=== PATIENT | female | born 1950 | race Caucasian/White ===

== ENCOUNTER 2018-03-04 11:14 | Outpatient (CLI) | payer MEDICARE, OTHER ==
--- NOTE | 2018-03-18 11:46 | Mammography Report ---
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 TECHNIQUE: Bilateral CC and MLO views were obtained. COMPARISON: None FINDINGS: The breasts demonstrate heterogeneously dense fibroglandular parenchyma bilaterally. Typically benign coarse and large rodlike calcifications are seen in both breasts. No suspicious masses, clustered microcalcifications, or regions of architectural distortion are identified. IMPRESSION: Benign findings RECOMMENDATION: Routine annual screening unless otherwise clinically indicated. BIRADS CATEGORY 2: Benign findings STANDARD QUALIFYING STATEMENTS: 1. This examination was not reviewed with the aid of Computer-Aided Detection (CAD). 2. A negative or benign imaging report should not delay biopsy if clinically suspicious findings are present. Consider surgical consultation if warrented. More than 5% of cancers are not identified by imaging. 3. Dense breasts may obscure an underlying neoplasm. 4. This examination was reviewed with the aid of 3D breast imaging (tomosynthesis).
== END 2018-03-04 11:15 | disposition home or self-care (01) ==
LOC: DI 11:14
DX: Z12.31 Encounter for screening mammogram for malignant neoplasm of breast (principal)
CPT/HCPCS: 77063; 77067

== ENCOUNTER 2020-01-02 16:20 | Emergency (ER) | payer MEDICARE, OTHER ==
[2020-01-02 16:28] VITALS: BP 152/74
[2020-01-02] MEDS ORDERED: AMOX/CLAV 875 MG/125 MG TABLET PO STA (17:25)
--- NOTE | 2020-01-02 17:27 | ED Physician Documentation ---
PD HPI WOUND RECHECK - Stated complaint Stated Complaint: DOG BITE - Chief complaint Chief Complaint: Wound - Histroy obtained from History obtained from: Patient (69-year-old woman who is up-to-date on tetanus was bitten on the right leg 2 days ago while running [place] a local park. Now has redness around the wound and a low-grade fever. No other symptoms of infection.) Review of Systems Constitutional: reports: Reviewed and negative Ears: reports: Reviewed and negative Nose: reports: Reviewed and negative PD PAST MEDICAL HISTORY - Present Medications Home Medications: Ambulatory Orders Medication Instructions Recorded Confirmed Amox/Clav 875/125 [Augmentin] 1 each PO Q12H #14 tablet 01/02/20 PD ED PE NORMAL - Vitals Vital signs reviewed: Yes - General General: Alert and oriented X 3, No acute distress - Extremities Extremities: Other (There are 3 puncture wounds on the right calf with mild surrounding cellulitis. No drainage.) - Neuro Neuro: Alert and oriented X 3, Normal speech Results - Vitals Vitals: Vital Signs - 24 hr 01/02/20 16:24 Temperature 36.8 C Heart Rate 78 Respiratory 18 Rate Blood Pressure 152/74 H O2 Saturation 98 Oxygen O2 Source Room air Departure - Departure Disposition: 01 Home, Self Care Clinical Impression: Dog bite of right lower leg with infection Qualifiers: Encounter type: initial encounter Qualified Code(s): S81.851A - Open bite, right lower leg, initial encounter; L08.9 - Local infection of the skin and subcutaneous tissue, unspecified; W54.0XXA - Bitten by dog, initial encounter Condition: Good Record reviewed to determine appropriate education?: Yes Instructions: ED Bite Animal General Prescriptions: Amox/Clav 875/125 [Augmentin] 1 each PO Q12H #14 tablet Comments: Return for increasing redness or higher fevers or if not better in 2 to 3 days.
== END 2020-01-02 17:45 | disposition home or self-care (01) ==
LOC: ED 16:20
DX: S81.851A Open bite, right lower leg, initial encounter (principal); L08.9 Local infection of the skin and subcutaneous tissue, unspecified; W54.0XXA Bitten by dog, initial encounter; Y93.02 Activity, running; Y92.830 Public park as the place of occurrence of the external cause
CPT/HCPCS: 99282; 99283; A9270

== ENCOUNTER 2020-04-05 22:23 | Outpatient (CLI) | payer MEDICARE, OTHER | END 2020-04-05 22:24 | disposition home or self-care (01) | LOC: COV 22:23 | PROVIDERS: ATTEND Family Medicine | DX: Z20.828 Contact with and (suspected) exposure to other viral communicable diseases (principal) ==

== ENCOUNTER 2020-06-07 13:37 | Outpatient (CLI) | payer MEDICARE, OTHER ==
--- NOTE | 2020-06-08 10:27 | Mammography Report ---
BILATERAL DIGITAL SCREENING MAMMOGRAM 3D/2D: 06/07/2020 CLINICAL: Routine screening. Comparison is made to exams dated: 03/04/2018 mammogram - [facility], 11/20/2016 ma mmogram, 08/24/2015 ultrasound, and 08/24/2015 mammogram - [facility]. The tissue of both breasts is predominantly fatty. There is a benign calcification in both breasts. No significant masses, calcifications, or other findings are seen in either breast. There has been no significant interval change. IMPRESSION: BENIGN There is no mammographic evidence of malignancy. A 1 year screening mammogram is recommended. This exam was interpreted at Station ID: [id number]. NOTE: For mammograms, a report in lay terms will be sent to the patient. Approximately 15% of breast malignancies will not be visualized mammographically. In the management of a palpable breast mass, a negative mammogram must not discourage biopsy of a clinically suspicious lesion. Electronically Signed By: Omero Maldonado acr/penrad:06/07/2020 17:02:10 ACR BI-RADS Category 2: Benign Finding(s) 3342F PARENCHYMAL PATTERN: (F) - The breast(s) demonstrate(s) diffuse fatty replacement. BI-RADS CATEGORY: (2) - 2 RECOMMENDATION: (ANNUAL) - Recommend routine annual screening mammography. [id number] 1 year screening LATERALITY: (B)
== END 2020-06-07 13:38 | disposition home or self-care (01) ==
LOC: DI 13:37
PROVIDERS: ATTEND Internal Medicine
DX: Z12.31 Encounter for screening mammogram for malignant neoplasm of breast (principal)

== ENCOUNTER 2022-02-14 13:36 | Outpatient (CLI) | payer MEDICARE, OTHER ==
--- NOTE | 2022-02-15 10:22 | Mammography Report ---
BILATERAL DIGITAL SCREENING MAMMOGRAM 3D/2D: 02/14/2022 CLINICAL: Routine screening. Comparison is made to exams dated: 06/07/2020 mammogram, 03/04/2018 mammogram - [facility], 11/20/2016 mammogram, 08/24/2015 mammogram, 02/23/2015 mammogram, and 07/29/2014 mammogram - [facility]. Both breasts are heterogeneously dense, which may obscure small masses (category c / 51-75% glandula r tissue). There is a benign calcification in both breasts. No significant masses, calcifications, or other findings are seen in either breast. There has been no significant interval change. IMPRESSION: BENIGN There is no mammographic evidence of malignancy. A 1 year screening mammogram is recommended. Based on the Tyrer Cuzick model (a risk assessment model) the patients lifetime risk is 3.7% and her 10 year risk is 3.0%. According to the ACR, ACS, and NCCN guidelines, an annual breast MRI exam suzette g with mammogram is recommended if the patients lifetime risk is 20% or greater. This exam was interpreted at Station ID: [id number]. NOTE: For mammograms, a report in lay terms will be sent to the patient. Approximately 15% of breast malignancies will not be visualized mammographically. In the management of a palpable breast mass, a negative mammogram must not discourage biopsy of a clinically suspicious lesion. Electronically Signed By: Ricky Grimaldo M.D., jr/eugenio:02/14/2022 15:50:05 ACR BI-RADS Category 2: Benign Finding(s) 3342F PARENCHYMAL PATTERN: (D) - The breast(s) demonstrate(s) heterogeneously dense fibroglandular parbrent ma. BI-RADS CATEGORY: (2) - 2 RECOMMENDATION: (ANNUAL) - Recommend routine annual screening mammography. [id number] 1 year screening LATERALITY: (B)
== END 2022-02-14 13:37 | disposition home or self-care (01) ==
LOC: DI 13:36
PROVIDERS: ATTEND Internal Medicine
DX: Z12.31 Encounter for screening mammogram for malignant neoplasm of breast (principal)

== ENCOUNTER 2022-07-06 00:17 | Emergency (ER) | payer MEDICARE, OTHER ==
[2022-07-06 00:26] VITALS: BP 161/87
--- NOTE | 2022-07-06 01:10 | ED Physician Documentation ---
PD HPI LOWER EXT INJURY - Stated complaint Stated Complaint: LFT KNEE INJURY - Chief complaint Chief Complaint: Ext Problem - History obtained from History obtained from: Patient - History of Present Illness Improved by: Rest Worsened by: Moving, Palpating Associated symptoms: Swelling Contributing factors: No: Anticoagulated - Additional information Additional information: HPI from patient. At approximately 7:30 PM tonight (07/05/2022), patient was walking down some stairs at a theater in [place] when she missed the last step, causing her to fall forward onto both of her knees. She has mild right knee pain, but her chief complaint is left knee pain and swelling. She is able to bear minimal weight on the left knee due to the pain. She has a history of meniscal injury to the left knee requiring surgical repair; this was in approximately 1994. She denies head injury, denies loss of consciousness. Review of Systems Musculoskeletal: reports: Joint pain, Joint swelling, Pain with weight bearing. denies: Neck pain, Back pain Neurologic: denies: Focal weakness, Numbness, Headache, Head injury PD PAST MEDICAL HISTORY - Past Medical History Past Medical History: Yes Cardiovascular: Hypertension GI: Other [employer]: Other Other Past Medical History: Cyst on L. Breast - Past Surgical History Past Surgical History: No /[employer] TE[employer]ER: Other Cardiovascular: Other - Present Medications Home Medications: Ambulatory Orders Medication Instructions Recorded Confirmed Verapamil ER [Calan SA] 180 mg PO DAILY 07/06/22 07/06/22 - Allergies Allergies/Adverse Reactions: Allergies Allergy/AdvReac Type Severity Reaction Status Date / Time iodine Allergy Edema Verified 07/06/22 00:22 - Social History Does the pt smoke?: No Smoking Status: Never smoker Does the pt drink ETOH?: No Does the pt have substance abuse?: No - Immunizations Immunizations are current?: Yes - POLST Patient has POLST: No PD ED PE NORMAL - Vitals Vital signs reviewed: Yes - General General: Alert and oriented X 3, No acute distress, Well developed/nourished - Neuro Neuro: No motor deficit, No sensory deficit PD ED PE EXPANDED - Extremities Extremities: Tenderness, Limited ROM, Swelling, Bruising, Left knee, Other (There is moderate swelling of the left knee and tenderness to palpation over the anterior aspect of the knee as well as the lateral aspect. She is able to fully extend the left knee but flexion is limited due to the swelling and pain. Right knee: FROM, no swelling, nontender) Results - Vitals Vitals: Vital Signs - 24 hr 07/06/22 00:23 Temperature 36.8 C Heart Rate 61 Respiratory 16 Rate Blood Pressure 161/87 H O2 Saturation 99 Oxygen O2 Source Room air - Rads (name of study) 4-view xrays left knee Radiology: Prelim report reviewed, EMP read indepedently, See rad report PD Medical Decision Making - ED course Complexity details: reviewed results, re-evaluated patient, considered differential, d/w patient ED course: No evidence of acute injury on left knee x-rays; specifically, no evidence of fracture nor dislocation. Radiologist does make note of significant prepatellar swelling, but also comments that there is no joint effusion. I discussed the results of the x-ray with the patient.We also discussed that certain injuries such as injuries to the menisci and/or ligaments will not show up on plain film x-ray. Because of the significant swelling and the moderate tenderness to palpation, she is provided crutches to minimize weightbearing, and a knee immobilizer is also placed. I advised her to use the immobilizer and the crutches for 5 to 7 days, and then to continue using them if it seems like they are helping. However, without an obvious injury on x-ray, she can toe-touch weight-bear as tolerated, although I recommended she not tried toe-touch weightbearing for at least 2 to 3 days. I advised her to contact her primary care provider to arrange for an appointment, next available appointment, for reevaluation. We discussed analgesia, but she declines. She says she does not want any strong (prescription) pain medication, and plans to simply take [id number] pain medication if she needs it. Departure - Departure Disposition: 01 Home, Self Care Clinical Impression: Left knee injury Qualifiers: Encounter type: initial encounter Qualified Code(s): S89.92XA - Unspecified injury of left lower leg, initial encounter Condition: Good Instructions: ED Crutch Walking, ED Immobilizer Knee, ED Sprain Knee Comments: The knee x-rays did not show any evidence of bone fracture (break).As is evident on the exam, the radiologist also knows a moderate amount of swelling around the patella (kneecap). Even though there is no obvious bony injury on the x-rays, you are being given a knee immobilizer and crutches to minimize the movement of the knee and minimize weightbearing on the left lower extremity for the next 5 to 7 days. This will speed the healing process. As we discussed, there is still the potential for injury to structures that would not show up on plain film x-rays, such as ligaments or the menisci of the knee. Follow-up with your primary care provider this coming Saturday as scheduled. At that time, they can reevaluate the knee, and if indicated, they can perform further study and/or provide you with referral to appropriate specialist (such as an orthopedic surgeon). Discharge Date/Time: 07/06/22 02:05
--- NOTE | 2022-07-06 01:18 | XRAY Report ---
PROCEDURE: Knee 4 View LT INDICATIONS: Trauma TECHNIQUE: 4 views of the left knee were acquired. COMPARISON: None. FINDINGS: Bones: No fractures or dislocations. No suspicious bony lesions. Soft tissues: No joint effusion. There is prepatellar soft tissue swelling. No suspicious soft tiss ue calcifications. IMPRESSION: 1. No fracture or dislocation. Reviewed by: Edmond Ferrara MD on 07/06/2022 1:16 AM PST Approved by: Edmond Ferrara MD on 07/06/2022 1:16 AM PST Station ID: [id number]
== END 2022-07-06 02:05 | disposition home or self-care (01) ==
LOC: ED 00:17
DX: S80.02XA Contusion of left knee, initial encounter (principal); W10.8XXA Fall (on) (from) other stairs and steps, initial encounter; Y93.89 Activity, other specified; Y92.254 Theater (live) as the place of occurrence of the external cause
CPT/HCPCS: 99283

== ENCOUNTER 2022-07-25 17:40 | Outpatient (CLI) | payer MEDICARE, OTHER ==
--- NOTE | 2022-07-26 08:14 | MRI Report ---
PROCEDURE: KNEE WO - LT INDICATIONS: PAIN IN LEFT LEG TECHNIQUE: Noncontrast sagittal PD fast spin echo and T2 fast spin echo with fat saturation, sagittal 3-D gradie nt sequence with fat saturation; coronal T1 spin echo and PD fast spin echo with fat saturation, and axial PD fast spin echo with fat saturation through the knee. COMPARISON: None. FINDINGS: Image quality: Excellent. Menisci: The medial meniscus is intact. The anterior horn lateral meniscus is diminutive, consistent with prior partial meniscectomy. Cruciate ligaments: The anterior and posterior cruciate ligaments appear intact. Medial structures: The medial collateral ligament appears intact. Visualized portions of the pes ans erinus tendons appear normal. No abnormal bursal fluid. Mild T2 signal elevation within and adjacen t to the tibial insertion site of the semimembranosus. Lateral structures: The lateral collateral ligament, long and short heads of the biceps femoris tend on appear intact. The popliteus tendon appears normal. Iliotibial band appears normal. Anterior structures: The quadriceps and patellar tendons appear intact. Patellar alignment is woodrow l. Lateral ventral trochlear prominence is present. Moderate prepatellar fluid. No edema in the infra patellar fat pad. Bones and cartilage: No bone marrow contusions or fractures. Mild subchondral degenerative marrow ed tamika within the lateral patellar apex. Mild tricomponent foraminal periareolar articular osteophyte fo rmation. Moderate cartilage loss diffusely overlies the weightbearing aspects of the medial femoral c ondyle and medial tibial plateau. Severe articular cartilage loss overlies the weightbearing aspects of the lateral femoral condyle and lateral tibial plateau. Mild articular cartilage loss overlies the lateral patellar facet with a superimposed moderate to high-grade region of articular cartilage loss overlying the lateral patellar apex measuring roughly 5 mm transverse. Joint space: There is physiologic knee joint fluid. Small Warner's cyst. Normal appearing synovial p licae are incidentally noted. IMPRESSION: 1. Tricompartmental osteoarthritis with associated articular cartilage loss. 2. Post surgical sequelae. 3. Prepatellar bursitis. 4. Insertional tendinitis of the semimembranosus. Reviewed by: Jeffrey Andersen MD on 07/26/2022 8:13 AM PDT Approved by: Jeffrey Andersen MD on 07/26/2022 8:13 AM PDT Station ID: [id number]
== END 2022-07-25 17:41 | disposition home or self-care (01) ==
LOC: DI 17:40
PROVIDERS: ATTEND Internal Medicine
DX: M17.12 Unilateral primary osteoarthritis, left knee (principal); M70.42 Prepatellar bursitis, left knee; M76.892 Other specified enthesopathies of left lower limb, excluding foot